=== PATIENT | male | born 1950 | race Caucasian/White ===

== ENCOUNTER 2017-07-20 13:51 | Outpatient (RCR) | payer MEDICARE, OTHER ==
[~2017-07-20] VITALS: Ht 182.9 cm; Wt 88.6 kg
[2017-07-20] MEDS ORDERED: LISINOPRIL20 MG PO (14:07)
[2017-07-20 14:09] VITALS: BP 136/91
[2017-07-21 07:55] VITALS: BP 143/86
[2017-07-21 19:56] VITALS: BP 152/89
[2017-07-21 20:46] VITALS: BP 146/87
[2017-07-22 07:52] VITALS: BP 120/77
[2017-07-22 08:30] VITALS: BP 123/81
[2017-07-22 19:54] VITALS: BP 167/92
[2017-07-22 20:00] VITALS: BP 167/92
[2017-07-23 08:08] VITALS: BP 123/86
[2017-07-23 08:44] VITALS: BP 124/77
[2017-07-23 20:30] VITALS: BP 144/83
[2017-07-23 21:03] VITALS: BP 145/86
[2017-07-24 08:15] VITALS: BP 138/95
[2017-07-24 20:15] VITALS: BP 152/98
[2017-07-25 08:55] VITALS: BP 134/91
[2017-07-25 20:04] VITALS: BP 156/103
[2017-07-25 20:39] VITALS: BP 154/96
[2017-07-26 08:57] VITALS: BP 122/74
[2017-07-26 08:58] VITALS: BP 128/90
[2017-07-26 20:03] VITALS: BP 130/82
[2017-07-26 20:40] VITALS: BP 124/81
== END 2017-07-26 18:05 | disposition home or self-care (01) ==
LOC: AMSURD 13:51
DX: N39.0 Urinary tract infection, site not specified (principal); Z45.2 Encounter for adjustment and management of vascular access device; Z95.9 Presence of cardiac and vascular implant and graft, unspecified
CPT/HCPCS: J0692; J1644

== ENCOUNTER 2017-08-14 09:59 | Outpatient (RCR) | payer MEDICARE, OTHER ==
[~2017-08-14] VITALS: Ht 182.9 cm; Wt 88.6 kg
[~2017-08-14 09:59] MED LIST: LISINOPRIL20 MG PO
[2017-08-14 10:00] VITALS: BP 166/104
--- NOTE | 2017-08-14 10:29 | NUR ---
PT REPORTS THAT HE DID NOT TAKE LISINOPRIL THIS AM AND BP WILL BE ELEVATED. PT DENIES BEING SYMPTOMATIC OR WANTING ANY FURTHER WORK UP FOR BP. ROCEPHIN GIVEN IN TWO SEPARATE INJECTIONS R/T LARGE DOSE. 1 INJECTION EACH TO R AND L DORSOGLUTEAL MUSCLE. PT REPORTS THAT HE IS HAVING A PROCEDURE DONE ON [facility] TOMORROW, Sunday08/15/17, WILL GET DAILY DOSE OF ROCEPHIN AT THAT TIME. WILL RETURN ON 08/16/17.
[2017-08-16 10:15] VITALS: BP 116/67
--- NOTE | 2017-08-16 10:31 | NUR ---
Gave dose of 2 gm rocephin IM in divided dose of 2.5ml in rt dorsal gluteal muscle, and 2.5ml in lt dorsal gluteal muscle. Dania well.
[2017-08-16] MEDS ORDERED: ACETAMINOPHEN-H1 TA2 PO (10:34)
[2017-08-16] MEDS ORDERED: PYRIDIUM100 M1 PO (10:35)
[2017-08-17 10:24] VITALS: BP 102/66
[2017-08-18 10:04] VITALS: BP 107/73
[2017-08-19 10:00] VITALS: BP 120/74
[2017-08-20 10:15] VITALS: BP 125/78
--- NOTE | 2017-08-20 10:42 | NUR ---
PT GIVEN 2GM ROCEPHIN SPLIT INTO 2.5 ML EACH. 1 INJ GIVEN IN RVG. 1 INJ GIVEN IN LVG. PT TOLERATES WELL.
[2017-08-21 10:27] VITALS: BP 113/72
[2017-08-22 10:00] VITALS: BP 130/81
[2017-08-23 10:00] VITALS: BP 105/85
[2017-08-24 10:13] VITALS: BP 107/80
[2017-08-25 10:01] VITALS: BP 134/84
--- NOTE | 2017-08-25 10:21 | NUR ---
IM INJ GIVEN IN RDG AND LDG. PT TOLERATES WELL.
[2017-08-26 10:02] VITALS: BP 127/75
[2017-08-27 10:05] VITALS: BP 106/70
== END 2017-08-26 18:06 | disposition home or self-care (01) ==
LOC: AMSURD 09:59
DX: N39.0 Urinary tract infection, site not specified (principal)
CPT/HCPCS: J0696

== ENCOUNTER → 2017-08-28 | Outpatient (CLI) | payer MEDICARE, OTHER ==
[2017-08-27 10:05] VITALS: BP 106/70
[~2017-08-28] MED LIST changes: +ACETAMINOPHEN-H1 TA2 PO; +PYRIDIUM100 M1 PO
== END ==
LOC: RAD 11:46
DX: N20.0 Calculus of kidney (principal); Z96.0 Presence of urogenital implants

== ENCOUNTER 2018-04-30 08:47 | Emergency (ER) | payer MEDICARE, OTHER ==
[~2018-04-30] VITALS: Ht 182.9 cm; Wt 88.6 kg
[2018-04-30] MEDS ORDERED: OXYCODONE HYDROC5 M1 PO (08:57)
[2018-04-30] MEDS ORDERED: PREDNISONE20 M1 PO (09:22)
[2018-04-30 09:29] VITALS: BP 130/81
== END 2018-04-30 09:29 | disposition home or self-care (01) ==
LOC: ED 08:47
DX: G56.01 Carpal tunnel syndrome, right upper limb (principal); I10 Essential (primary) hypertension
CPT/HCPCS: J7512